=== PATIENT | female | born 1990 | race Caucasian/White ===

== ENCOUNTER → 2019-12-26 07:55 | Outpatient (CLI) | payer BC, SELFPAY ==
--- NOTE | ~2019-12-26 | US_ITS ---
EXAMINATION: US abdomen complete EXAM DATE: 12/26/2019 08:15 INDICATION: Abdominal pain, gas bloating. Right flank pain, right upper quadrant pain. TECHNIQUE: Multiple grayscale and Doppler images of the complete abdomen were obtained (by a technolo gist who performed the scan) and subsequently reviewed. There is no prior study for comparison. FINDINGS: The abdominal aorta is normal in caliber. Visualized portion IVC is patent. The pancreatic head a nd body are normal in appearance. The pancreatic tail is not visualized. The liver has normal echogenicity and contour. There are no focal liver lesions identified. There is no evidence of intrahepatic biliary duct dilation. Portal venous flow was seen in the hepatopedal , normal direction and has normal Doppler waveform. Common bile duct measures 3 mm, which is normal. The gallbladder wall is normal in thickness, with ex pected amount of distention. No sonographic evidence of pericholecystic fluid. There is no cholelit hiases. Technologist performing exam reports patient did not demonstrate sonographic Hannon's sign. Please note that this sign is less reliable in patients who have received pain medication. Right kidney: There is normal contour and echogenicity. It measures 10.8 x 3.5 x 4.7 centimeters. There are no focal renal lesions identified. There is no hydronephrosis. Left kidney: There is normal contour and echogenicity. It measures 10.2 x 5.5 x 6.1 centimeters. T here are no focal renal lesions identified. There is no hydronephrosis. The spleen measures 9.8 centimeters and is morphologically normal. IMPRESSION: 1. Unremarkable complete abdominal ultrasound exam. Reviewed, dictated and finalized at location B.
== END ==
PROVIDERS: PCP Nurse Practitioner; Visit Provider Nurse Practitioner
DX: R10.9 Unspecified abdominal pain (principal)
CPT/HCPCS: 76700

== ENCOUNTER 2020-01-07 08:34 | Outpatient (CLI) | payer BC, SELFPAY ==
--- NOTE | ~2020-01-07 | CT_ITS ---
EXAMINATION: CT abdomen pelvis w con DATE: 01/07/2020 09:11 INDICATION: Unspecified abdominal pain TECHNIQUE: Computed tomography (CT) of the abdomen and pelvis was performed with 100 cc Omnipaque 350 intravenous contrast. The dose-length product was 224.95 mGy-cm. Automated exposure control and iter ative reconstruction technique were employed. COMPARISON: None. FINDINGS: Heart size normal. No significant pleural or pericardial effusion. Lung bases are unremarka ble. No significant vascular abnormality. No lymphadenopathy. There are enlarged periuterine and para metrial veins, consistent with pelvic congestion syndrome. No bowel obstruction. There is hepatomegaly. The spleen, pancreas, adrenal glands and kidneys are unremarkable. Gallbladder is present. No free air or free fluid. No acute osseous abnormality. IMPRESSION: 1. Enlarged periuterine and parametrial veins, consistent with pelvic congestion syndrome. 2: Hepatomegaly. Reviewed, dictated and finalized at location A. IMPRESSION: 1. Enlarged periuterine and parametrial veins, consistent with pelvic congestio n syndrome. 2: Hepatomegaly.
== END 2020-01-07 08:35 | disposition home or self-care (01) ==
LOC: ANHIMG 08:42
PROVIDERS: PCP Internal Medicine; Visit Provider Nurse Practitioner
DX: R10.9 Unspecified abdominal pain (principal); R16.0 Hepatomegaly, not elsewhere classified
CPT/HCPCS: 74177; Q9967

== ENCOUNTER 2022-01-14 15:42 | Emergency (ER) | payer BC, SELFPAY ==
--- NOTE | ~2022-01-14 | XR_ITS ---
EXAMINATION: XR chest 2V DATE: 01/14/2022 15:58 INDICATION: Chest pain. TECHNIQUE: Frontal and lateral views of the chest were obtained. COMPARISON: CT abdomen and pelvis 01/07/2020 FINDINGS: The chest demonstrates clear lungs without pneumonia, pleural effusion, or pneumothorax. Th e heart size is normal. IMPRESSION: 1. No acute cardiopulmonary disease. Reviewed, dictated and finalized at location E.
[2022-01-14 15:46] VITALS: BP 152/70; PULSE 78; RESP 20; O2SAT 100
--- NOTE | 2022-01-14 15:51 | ECG_ITS ---
Measurements Intervals Felt Rate: 77 P: 51 [place]: 143 QRS: 93 QRSD: 105 T: 7 QT: 366 QTc: 414 Interpretive Statements SINUS RHYTHM INCOMPLETE RIGHT BUNDLE BRANCH BLOCK [90+ ms QRS DURATION, TERMINAL R IN V1/V2, 40+ ms S IN I/aVL/V4/V5/V6] BASELINE ARTIFACT BORDERLINE ECG NO PREVIOUS ECG AVAILABLE FOR COMPARISON Electronically Signed On 01-15-2022 16:11:18 CDT by Oscar Carter M.D.
[2022-01-14 16:10] VITALS: PULSE 74
--- NOTE | 2022-01-14 16:17 | ED.CHESTPAIN ---
HPI - Chest Pain General Chief Complaint: Chest Pain Stated Complaint: chest pain Time Seen by Provider: 01/14/22 15:47 Source: patient Mode of arrival: ambulatory Limitations: no limitations History of Present Illness HPI narrative: Patient is 31 years old white female presented to the ED with intermittent chest pain sometimes on the right side sometimes on the left side, dull aching for the last 3 days. Patient denies any fever, chills, nausea, vomiting, diarrhea, constipation, shortness of breath, radiation of pain. Patient had discomfort and pain at the medial side of right thigh for 1-1/2 months, never been seen by any doctor for, is wondering if she have blood clot or not. Related Data Home Medications Medication Instructions Recorded Confirmed No Home Medications 01/14/22 01/14/22 Allergies Allergy/AdvReac Type Severity Reaction Status Date / Time No Known Allergies Allergy Verified 01/14/22 15:50 Review of Systems Review of Systems: CONSTITUTIONAL: Denies fever, chills, or sweats. EYES: Denies visual changes, redness, or discharge. ENT: Denies rhinorrhea, congestion, sore throat, or otalgia. CARDIOVASCULAR: Denies chest pain, palpitations, or edema. RESPIRATORY: Denies cough or dyspnea. GASTROINTESTINAL: Denies abdominal pain, nausea, vomiting, or diarrhea. GENITOURINARY: Denies dysuria or hematuria. SKIN: Denies rash or itching. MUSCULOSKELETAL: Denies back pain, joint pain, or myalgia. NEUROLOGIC: Denies headache, numbness, or weakness. PSYCHIATRIC: Denies anxiety or depression. [facility] Surgical History Surgical History Delivery by section 2019 Social History Social History Smoking status: Never smoker Alcohol intake: current Alcohol use details: A couple of beers a week. Exam Narrative: General appearance: Well-developed, well-nourished Skin: Normal color Head: Normocephalic, nontraumatic Eyes: Clear conjunctiva ENT: Oropharynx normal, ears normal, nose normal Neck: Supple, nontender Chest and respiratory: Airway patent, no respiratory distress, no accessory muscle use Heart: Regular rate/rhythm Abdomen: Soft, nontender, no organomegaly, quiet bowel sounds Vascular: Normal peripheral pulses, normal capillary refill. Musculoskeletal: Right thigh examination showed no erythema, no swelling, no mass, no rash, no tenderness, normal size compared to the left 1 Neurologic: Alert and oriented ?3, UNEMPLOYMENT SPECIALIST is normal as tested, no gross motor deficit Course Course Emergency Course: Patient presentation is not consistent with a patient with pulmonary embolism., And anxiety-like symptoms is my concern. Work-up did not show any significant findings to explain patient condition, D-dimer is slightly elevated which is not consistent with a possibility of deep vein thrombosis or pulmonary embolism. Patient oxygenation on room air IS 100% Vital Signs Vital signs: Vital Signs Pulse Rate 78 01/14/22 15:46 Respiratory Rate 20 01/14/22 15:46 Blood Pressure 152/70 H 01/14/22 15:46 Pulse Oximetry 100 01/14/22 15:46 Pulse Rate 74 01/14/22 16:10 Respiratory Rate 20 01/14/22 15:46 Blood Pressure 152/70 H 01/14/22 15:46 Pulse Oximetry 100 01/14/22 15:46 MDM - Chest Pain MDM Narrative Medical decision making narrative: Chest pain, pulmonary embolism, anxiety-like symptoms Differential Diagnosis Differential diagnosis: Likely stable angina, atypical chest pain, costochondritis, chest pain and other (Anxiety-like symptoms, pulmonary embolism) Lab Data Result diagrams: 01/14/22 16:08
[2022-01-14 16:27] LABS: Basophils Percent Auto 0.6 % (0.2-1.2); Eosinophils Absolute Auto 0.1 K/mm3 (0-0.3); Eosinophils Percent Auto 1.4 % (0-4.4); Hematocrit 35.7 % (37.0-47.0); Hemoglobin 11.6 g/dL (12.0-15.0); Immature Granulocyte Absolute 0.01 K/mm3 (0.00-0.031); Immature Granulocyte Percent A 0.2 % (0-0.5); Lymphocytes Absolute Auto 0.87 K/mm3 (0.9-3.2); Lymphocytes Percent Auto 17.5 % (18.3-44.2); Mean Corpuscular HGB Conc 32.5 g/dl (32-36); Mean Corpuscular Hemoglobin 29.7 pg (26-34); Mean Corpuscular Volume 91.3 fl (80-100); Mean Platelet Volume 10.8 fl (7.4-10.4); Monocytes Absolute Auto 0.6 K/mm3 (0.1-0.6); Monocytes Percent Auto 11.3 % (2.6-8.5); Neutrophils Absolute Auto 3.4 K/mm3 (1.3-6.7); Platelet Count Result 217 k/mm3 (150-375); Red Blood Count 3.91 M/mm3 (4.2-5.4); Red Cell Distribution Width 12.9 % (11.5-14.5)
[2022-01-14] MEDS: ASPIRIN 81 MG CHEWABLE TABLET 324 MG PO (16:31)
[2022-01-14 16:37] LABS: INR 1.1; Prothrombin Time 13.3 Seconds (11.1-14.7)
[2022-01-14 16:41] LABS: Alanine Aminotransferase 17 U/L (4-35); Albumin Level 4.1 g/dL (3.5-5.1); Alkaline Phosphatase 42 U/L (38-126); Anion Gap 7 mmol/L (8-16); Aspartate Amino Transferase 25 U/L (14-36); Bilirubin,Total 0.3 mg/dL (0.2-1.3); Blood Urea Nitrogen 12 mg/dL (7-17); Calcium 8.6 mg/dL (8.4-10.2); Carbon Dioxide 27 mmol/L (22-30); Chloride 103 mmol/L (98-107); Estimated CRCL calculation 84 ml/min; Estimated Glomerular Filt Rate > 60; Glucose 108 mg/dL (65-110); Lipase 40 U/L (23-300); Potassium 3.3 mmol/L (3.4-5.0); Sodium 137 mmol/L (137-145)
[2022-01-14 16:51] LABS: Troponin I < 0.012 ng/mL (0.000-0.034)
[2022-01-14 17:10] VITALS: BP 122/79; PULSE 71; RESP 17; O2SAT 99
== END 2022-01-14 17:13 | disposition home or self-care (01) ==
PROVIDERS: Emergency Provider Emergency Medicine; PCP Internal Medicine
DX: R07.9 Chest pain, unspecified (principal); I45.10 Unspecified right bundle-branch block
CPT/HCPCS: 36415; 71046; 80053; 83690; 84484; 85025; 85380; 85610; 85730; 93005; 99284; A9270

== ENCOUNTER → 2023-09-11 09:48 | Outpatient (CLI) | payer BC, SELFPAY ==
--- NOTE | ~2023-09-11 | US_ITS ---
EXAMINATION: US transvaginal DATE: 09/11/2023 10:12 INDICATION: Left lower quadrant pain. History of kidney stones. Comparison:No prior studies for comparison. TECHNIQUE: Multiple endovaginal sonographic images of the pelvis performed. FINDINGS: The uterus measures 6.9 x 5.9 x 4.6 cm. The endometrial complex is heterogeneous measuring 2 cm.. The right ovary measures 3.5 x 2.4 x 2.6 cm and the left ovary measures 2.6 x 1.4 x 2.5 cm. There ar e small follicles in each ovary. Normal doppler signal in both ovaries. There is no free fluid in the pelvis. There are no abnormal masses seen on either side. IMPRESSION: 1. Thickened heterogeneous endometrium measuring 2 cm. Reviewed, dictated and finalized at location L. RPROOFER HELPER
== END ==
PROVIDERS: PCP Obstetrics & Gynecology; Visit Provider Nurse Practitioner
DX: R10.31 Right lower quadrant pain (principal); Z87.442 Personal history of urinary calculi
CPT/HCPCS: 76830

== ENCOUNTER 2023-11-07 01:41 | Day surgery (SDC) | payer BC, SELFPAY ==
[2023-10-10 09:49] VITALS: BMI 19.5
--- NOTE | 2023-10-10 10:12 | PC.NURSE ---
Addendum entered by Lela Davenport RN 10/29/23 12:39: PT TO ARRIVE AT 1000 ON 11/07/23 FOR SURGERY AT 1200. Original Note: Report to the Outpatient Waiting Room, entrance under the green pavilion located off [facility], at 1130 on 10-24-23. Planned Procedure Time: 1330. Time changes happen often and if your time is changed the preop area will call you the afternoon before. - You and your visitor will be asked to self-screen and do not enter if you have any COVID symptoms. - A mask is optional within the hospital at this time. Patients may have clear liquids (water, carbonated beverages, clear teas, apple juice) until 3 hours prior to surgery with a maximum of 20 ounces. 1030 - No food from midnight until time of surgery - Infants may have breast milk until 4 hours before surgery, infant formula 6 hours prior to surgery. - Children will be allowed to drink immediately following surgery. If applicable, please bring a bottle or sippy cup to assist with drinking. Juice, water, soda, and popsicles are readily available. For infants on formula, please bring formula the day of surgery. Pacifiers are allowed. Take the following medications with a SIP of water the morning of surgery: None DO NOT STOP ANY OF YOUR OTHER PRESCRIPTION MEDICATIONS PRIOR TO SURGERY ?EXCEPT THE FOLLOWING Medications to discontinue per physician: N/A Please no make-up, nail turkish, hairspray, perfume, deodorant, or body powder the day of surgery. No jewelry (including any body piercings) or valuables the day of surgery, leave them at home. Please take a shower or bath the night before, or the morning of, surgery with an antibacterial soap. Wear comfortable, loose fitting clothing. Children are encouraged to wear pajamas. - Jewelry must be removed prior to entering the operating room. Rings and piercings that are not removed may be cut off. - The hospital will not accept responsibility for valuables. - Please leave all valuables, including medications, at home the day of surgery. If you are going home after surgery, a licensed tractor trailer moving van driver must drive you home. - NO public transportation without another adult if you receive anesthesia. - We recommend that an adult stay with you for 24 hours following discharge. - We also recommend that you do not drive, make important decision, drink alcoholic beverages, or take any drugs that were not prescribed by your health care provider for at least 24 hours after your discharge time. For Pediatric surgeries, we recommend two adults accompany the child home. Follow any additional instructions given to you from your surgeon. If you or anyone in your household have experienced Covid symptoms in the past week, please notify your surgeon or the nurse liaison at the phone number below for possible testing. Telephone instructions given to Divina Cedeno and asked if any additional questions and then verbalized understanding. Patient advised to call surgeon office or pre surgery nurse liaison [phone] if any additional questions.
--- NOTE | 2023-10-29 12:38 | PC.NURSE ---
Pt history update in EMR - no other changes in medications or health history since initial interview. New pre-op instructions reviewed with pt. Pt denies questions at this time.
--- NOTE | 2023-11-06 09:41 | P.PNAN_ITS ---
Anes - Initial Pre Proc Eval Procedure: Operation Date: 11/07/23 12:00 Proposed Procedures p Hysteroscopy, Dilation and Curettage, Polypectomy - Stone Thompson MD Date/Time: 11/06/23 09:41 Surgeon: Stone Thompson MD Pre Op Diagnosis: Uterine Polyp, Pelvic Pain, Thickened Endometrium Patient Data Age: 33 Gender: F Height: 1.7 m Weight: 56.7 kg Allergies Allergy/AdvReac Type Severity Reaction Status Date / Time No Known Allergies Allergy Verified 11/07/23 10:55 Home Medications Medication Instructions Recorded Confirmed Type No Home Medications 01/14/22 10/29/23 History Patient hx anesthesia problems: none Family hx anesthesia problems: none Results Review: All pre-operative results and documents have been reviewed as part of the pre- operative evaluation. [facility] Surgical History Surgical History Delivery by section 2018 Social History Social History (Updated 11/07/23 @ 11:29 by Corky Gutierrez DO) Smoking status: Never smoker Second hand tobacco smoke exposure: No Alcohol intake: current Drinks per week: 2 Alcohol use details: A couple of beers a week. Substance use: current Substance use type: marijuana Other substance usage details: occasional Living arrangements: with family Spiritual care concerns: No Anes - Eval Final PreProcedure Day of Procedure 11/06/23 09:41 Patient weight: normal Heart: regular rate and rhythm Lungs: clear to auscultation and normal air movement Airway: Mallampati scale class II Neurological: alert and oriented Last oral intake: >/= 8 hours ASA classification: II Emergent: no Anesthetic plan: proceed Anesthesia type and monitoring: general GIVS and standard monitoring Results Review: All pre-operative results and documents have been reviewed as part of the pre- operative evaluation. Informed Consent: The patient's anesthetic plan and its attendant risks and benefits were discussed with the patient/family/POA. Questions were solicited and answers provided to the satisfaction of the patient/family/POA.
[2023-11-07 10:45] VITALS: BP 125/81; PULSE 73; RESP 14; TEMP 36.9; O2SAT 100
[2023-11-07] MEDS: ACETAMINOPHEN 500 MG TABLET 1000 MG PO (10:45)
[2023-11-07] MEDS: LACTATED RINGERS 1,000 ML 30 ML IV CONT (10:45)
--- NOTE | 2023-11-07 11:41 | PM.IMHP ---
H&P: HPI History of Present Illness Date/Time: 11/07/23 11:41 Chief Complaint: Heavy periods Narrative: 33 y/o who has heavy menses lasting 7 days each, occurring on a monthly basis. Ultrasound exam shows thickened, heterogeneous endometrium measuring 2 cm. Her has had a vasectomy. Review of Systems Review of Systems: All systems reviewed & are unremarkable except as noted in HPI and below PMFSH Surgical History Surgical History Delivery by section 2018 Social History Social History Smoking status: Never smoker Second hand tobacco smoke exposure: No Alcohol intake: current Drinks per week: 2 Alcohol use details: A couple of beers a week. Substance use: current Substance use type: marijuana Other substance usage details: occasional Living arrangements: with family Spiritual care concerns: No Meds Home Medications and Allergies Home Medications Medication Instructions Recorded Confirmed Type No Home Medications 01/14/22 10/29/23 History Allergies Allergy/AdvReac Type Severity Reaction Status Date / Time No Known Allergies Allergy Verified 11/07/23 10:55 Vital Signs Vital Signs - 24 hr 11/07/23 10:45 Temperature 36.9 C Pulse Rate 73 Respiratory Rate 14 Blood Pressure 125/81 Pulse Oximetry 100 Oxygen Delivery Room Air Exam Const: Orientation/consciousness: patient oriented x3 Other: Well-developed, well-nourished female in no acute distress. Neck: Thyroid: thyroid normal Lymphatic: no lymphadenopathy noted (in neck, axilla or inguinal nodes) Resp: Effort & Inspection: normal respiratory effort Auscultation: clear to auscultation bilaterally Cardio: Rate: regular rate Rhythm: regular rhythm Heart sounds: S1 normal heart sound present and S2 normal heart sound present GI: Other: ABD: Soft, nontender, nondistended. No guarding or rebound tenderness. No hepatosplenomegaly. : General: Yes no CVA tenderness Other: External genitalia: normal female hair distribution, without lesion. Urethral meatus: no lesion, non prolapsed. Bladder: no mass, nontender Vagina: well-estrogenized, without lesion or discharge. No cystocele or rectocele. Cervix: no lesion or discharge. Uterus: small, anteverted, freely mobile, nontender Adnexa: no mass or tenderness. Anus/perineum: no lesions, nontender Back/Spine/Pelvis: Back: no CVA tenderness Skin: General skin exam: normal color and no rashes or lesions noted Neuro: General: patient oriented x3 Extrem: Other: Extremities: nontender with no edema Psych: Mental Status: mental status grossly normal Affect: normal affect Assessment and Plan Assessment and plan (1) Menorrhagia: Code(s): N92.0 - Excessive and frequent menstruation with regular cycle Status: Acute Assessment and Plan: A: Menorrhagia with abnormal pelvic ultrasound. P: Offered medical as well as surgical approaches, and she prefers the latter. Specifically, I have offered hysteroscopy with dilation and sharp curettage, with possible endometrial polypectomy. She understands risks of surgery to include risks of anesthesia, risks of pain, infection, bleeding, blood products, thromboembolic phenomena and damage to adjacent structures such as bowel, bladder, ureters, blood vessels and nerves. She understands all these risks and elects to proceed with surgery. (2) Abnormal pelvic ultrasound: Code(s): R93.89 - Abnormal findings on diagnostic imaging of other specified body structures Status: Acute
--- NOTE | 2023-11-07 12:04 | WPDHPUPDATE1 ---
History and Physical Update Update Date/Time: 11/07/23 12:04 History and Physical has been reviewed, including an updated exam of the patient. There are NO changes in the patient's condition. Risks, benefits, and alternatives have been discussed and questions answered. Patient agrees to proceed with procedure.
[2023-11-07] MEDS: LIDOCAINE HCL 1% LOCAL INJ 20 ML VIAL 10 ML INFILTRATE (12:27)
[2023-11-07 12:40] VITALS: BP 120/76; PULSE 65; RESP 12; O2SAT 100
--- NOTE | 2023-11-07 12:40 | W.PM.PROC2 ---
Procedure Note - Detailed Date of Procedure 11/07/23 Pre-op Diagnosis Menorrhagia Abnormal pelvic ultrasound Post-op Diagnosis Same Procedure Performed Hysteroscopy Dilation and sharp curettage Surgeon Stone Thompson MD Anesthesia MAC and Local (1% lidocaine) Findings Endometrial tissue thick, but otherwise unremarkable. Both tubal ostia seen. Description of Procedure The patient was taken to the operating room where she was prepared and draped in the usual sterile fashion in the dorsal lithotomy position. The bladder was drained with a red rubber catheter. A sterile speculum was placed into the vagina. The anterior lip of the cervix was grasped with single-tooth tenaculum. Ten mL of 1% lidocaine was administered in a paracervical block. The cervix was then gently dilated using Hegar dilators until a 7 mm dilator could be passed. Hysteroscopy was performed using sterile saline as a distention medium. Findings are as noted above. Sharp curettage was then performed, and endometrial curettings were collected on a Telfa pad and passed off to be sent to pathology. Hemostasis was excellent. Sponge, lap, needle and instrument counts were correct. The patient was awakened and taken to the recovery room in stable condition. I was present and scrubbed through the entire procedure. Estimated Blood Loss 5 Drains No Packing No Pathology Yes (Endometrial curettings) Complications None Condition Stable Disposition PACU
[2023-11-07 13:10] VITALS: BP 119/83; PULSE 53; RESP 16
== END 2023-11-07 13:20 | disposition home or self-care (01) ==
PROVIDERS: PCP Internal Medicine; Visit Provider Obstetrics & Gynecology
PROC: 0U5B8ZZ Destruction of Endometrium, Via Natural or Artificial Opening Endoscopic (ICD-10-PCS; CPT 58563; principal; 2023-11-07 12:00)
DX: N92.0 Excessive and frequent menstruation with regular cycle (principal)
CPT/HCPCS: 58558; 88305; A9270; J1100; J2250; J2405; J2704; J3010; J7120

== ENCOUNTER 2024-11-28 09:22 | Outpatient (CLI) | payer BC, SELFPAY ==
--- OUTSIDE RECORDS SUMMARY | 2024-11-28 09:27 | XMS_ITS | Clinical Summary ---
Author Organization [facility] Address [address] [place] [address] Care Team Providers Care Environmental Solutions Engineer Name Role Phone Thiago Sigala DO Primary Care Provider [phone]- [phone] Allergies No known active allergies Medications acetaminophen (TYLENOL) 500 mg tablet Take 1 tablet (500 mg total) by mouth every 6 (six) hours as needed for pain 30 tablet 08/25/2023 Active Social History Tobacco Use Types Packs/Day Years Used Date Smoking Tobacco: Never Assessed Personal Safety Answer Date Recorded Have you ever been in or are you currently in a harmful physical or emotional relationship or is someone making you feel afraid or unsafe? Denies 08/25/2023 Comments Unknown Sex and Gender Information Value Date Recorded Sex Assigned at Not on file Legal Sex Female 10:20 AM RESEARCH ASST Gender Identity Not on file Sexual Orientation Not on file Last Filed Vital Signs Vital Sign Reading Time Taken Comments Blood Pressure 122/69 08/25/2023 2:35 PM RESEARCH ASST Pulse 59 08/25/2023 2:35 PM RESEARCH ASST Temperature 37.1 C (98.8 F) 08/25/2023 10:42 AM RESEARCH ASST Respiratory Rate 16 08/25/2023 2:35 PM RESEARCH ASST Oxygen Saturation 96% 08/25/2023 2:35 PM RESEARCH ASST Inhaled Oxygen Concentration - - Weight 56.7 kg (125 lb) 08/25/2023 10:42 AM RESEARCH ASST Height 170.2 cm (5' 7 ) 08/25/2023 10:42 AM RESEARCH ASST Body Mass Index 19.58 08/25/2023 10:42 AM RESEARCH ASST Plan of Treatment Health Maintenance Due Date Last Done Comments Cervical Cancer Screening 1991 Depression Screening 1991 Hepatitis C Screening 1991 DTaP/Tdap/Td Vaccine (1 - Tdap) 2002 Varicella Vaccines (1 of 2 - 13+ 2-dose series) 2004 Hepatitis B Screening 2009 Regular Well Visit/Exam 18-64 2009 Influenza Vaccine (#1) 2024 HPV Vaccines Aged Out No longer eligi ble based on patient's age to complete this topic Pneumococcal vaccine <65 Aged Out No longer eligible based on patient's age to complete this topic Insurance [facility] Care Teams Environmental Solutions Engineer Relationship Specialty Start Date End Date Thiago Sigala DO PCP - General Internal Medicine 08/25/23
--- OUTSIDE RECORDS SUMMARY | 2024-11-28 09:27 | XMS_ITS | Referral Summary ---
Author Organization [facility] Address [address] [place] [address] Care Team Providers Care Customer Supply Chain Analyst Name Role Phone Thiago Sigala DO Primary Care Provider [phone]- [phone] Allergies No known active allergies Medications acetaminophen [...] on file Legal Sex Female 10:20 AM DAIRY NUTRITION CONSULTANT Gender Identity Not on file Sexual Orientation Not on file Last Filed Vital Signs Vital Sign Reading Time Taken Comments Blood Pressure 122/69 08/25/2023 2:35 PM DAIRY NUTRITION CONSULTANT Pulse 59 08/25/2023 2:35 PM DAIRY NUTRITION CONSULTANT Temperature 37.1 C (98.8 F) 08/25/2023 10:42 AM DAIRY NUTRITION CONSULTANT Respiratory Rate 16 08/25/2023 2:35 PM DAIRY NUTRITION CONSULTANT Oxygen Saturation 96% 08/25/2023 2:35 PM DAIRY NUTRITION CONSULTANT Inhaled Oxygen Concentration - - Weight 56.7 kg (125 lb) 08/25/2023 10:42 AM DAIRY NUTRITION CONSULTANT Height 170.2 cm (5' 7 ) 08/25/2023 10:42 AM DAIRY NUTRITION CONSULTANT Body Mass Index 19.58 08/25/2023 10:42 AM DAIRY NUTRITION CONSULTANT Plan of Treatment Not on file Insurance [facility] Care Teams Customer Supply Chain Analyst Relationship Specialty Start Date End Date Thiago Sigala DO PCP - General Internal Medicine 08/25/23
[2024-11-28 17:46] LABS: Alanine Aminotransferase 26 U/L (6-35); Albumin Level 4.8 g/dL (3.5-5.1); Alkaline Phosphatase 54 U/L (38-126); Anion Gap 12 mmol/L (4-12); Aspartate Amino Transferase 50 U/L (14-36); Bilirubin,Total 0.7 mg/dL (0.2-1.3); Blood Urea Nitrogen 14 mg/dL (7-17); Calcium 9.6 mg/dL (8.4-10.2); Carbon Dioxide 27 mmol/L (22-30); Chloride 102 mmol/L (98-107); Cholesterol 178 mg/dL (0-200); Estimated Glomerular Filt Rate > 60; Glucose 87 mg/dL (65-110); HDL Direct 80 mg/dL; Potassium 4.3 mmol/L (3.4-5.0); Sodium 141 mmol/L (137-145); Triglycerides 53 mg/dL (<150)
[2024-11-28 17:48] LABS: Basophils Absolute Auto 0.1 K/mm3 (0.0-0.1); Basophils Percent Auto 0.9 % (0.2-1.2); Eosinophils Absolute Auto 0.1 K/mm3 (0-0.3); Eosinophils Percent Auto 0.6 % (0-4.4); Hematocrit 42.3 % (37.0-47.0); Hemoglobin 13.3 g/dL (12.0-15.0); Immature Granulocyte Absolute 0.02 K/mm3 (0.00-0.031); Immature Granulocyte Percent A 0.2 % (0-0.5); Lymphocytes Percent Auto 16.1 % (18.3-44.2); Mean Corpuscular HGB Conc 31.4 g/dl (32-36); Mean Corpuscular Volume 92.4 fl (80-100); Mean Platelet Volume 11.1 fl (7.4-10.4); Monocytes Absolute Auto 0.6 K/mm3 (0.1-0.6); Monocytes Percent Auto 7.7 % (2.6-8.5); Neutrophils Percent Auto 74.5 % (45.5-73.1); Platelet Count Result 282 k/mm3 (150-375); Red Blood Count 4.58 M/mm3 (4.2-5.4); White Blood Count 8.1 K/mm3 (4.5-10.0)
[2024-11-28 17:57] LABS: LDL Cholesterol Direct 74 mg/dL
== END 2024-11-28 09:23 | disposition home or self-care (01) ==
LOC: ANHGOSHLAB 09:24
PROVIDERS: PCP Nurse Practitioner; Visit Provider Nurse Practitioner
DX: R07.9 Chest pain, unspecified (principal)
CPT/HCPCS: 36415; 80053; 80061; 84443; 85025

== ENCOUNTER 2024-12-02 14:39 | Outpatient (CLI) | payer BC, SELFPAY ==
--- NOTE | ~2024-12-02 | XR_ITS ---
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 RESULT: Lines, tubes, and devices: None. Lungs and pleura: Clear. Cardiomediastinal silhouette: Stable. Other: No acute osseous or upper abdominal finding. IMPRESSION: No acute cardiopulmonary process. Reviewed, dictated and finalized at location K. AGING MACHINE SUPPLIES DISTRIBUTOR
== END 2024-12-02 14:40 | disposition home or self-care (01) ==
PROVIDERS: PCP Clinical Nurse Specialist; Visit Provider Clinical Nurse Specialist
DX: R07.9 Chest pain, unspecified (principal)
CPT/HCPCS: 71046

== ENCOUNTER 2024-12-02 14:50 | Outpatient (CLI) | payer BC, SELFPAY ==
--- OUTSIDE RECORDS SUMMARY | 2024-12-02 14:53 | XMS_ITS | Referral Summary ---
Author Organization [facility] Address [address] [place] [address] Care Team Providers Care Cutter First Name Role Phone Tihago Sigala DO Primary Care Provider [phone]- [phone] Allergies No known active allergies Medications acetaminophen [...] on file Legal Sex Female 10:20 AM ANVIL WORKER Gender Identity Not on file Sexual Orientation Not on file Last Filed Vital Signs Vital Sign Reading Time Taken Comments Blood Pressure 122/69 08/25/2023 2:35 PM ANVIL WORKER Pulse 59 08/25/2023 2:35 PM ANVIL WORKER Temperature 37.1 C (98.8 F) 08/25/2023 10:42 AM ANVIL WORKER Respiratory Rate 16 08/25/2023 2:35 PM ANVIL WORKER Oxygen Saturation 96% 08/25/2023 2:35 PM ANVIL WORKER Inhaled Oxygen Concentration - - Weight 56.7 kg (125 lb) 08/25/2023 10:42 AM ANVIL WORKER Height 170.2 cm (5' 7 ) 08/25/2023 10:42 AM ANVIL WORKER Body Mass Index 19.58 08/25/2023 10:42 AM ANVIL WORKER Plan of Treatment Not on file Insurance [facility] Care Teams Cutter First Relationship Specialty Start Date End Date Thiago Sigala DO PCP - General Internal Medicine 08/25/23
--- OUTSIDE RECORDS SUMMARY | 2024-12-02 14:53 | XMS_ITS | Clinical Summary ---
Author Organization [facility] Address [address] [place] [address] Care Team Providers Care Communications Billing Analyst Name Role Phone Thiago Sigala DO Primary Care Provider [phone] Allergies No known active allergies Medications acetaminophen [...] on file Legal Sex Female 10:20 AM VACATION GUIDE Gender Identity Not on file Sexual Orientation Not on file Last Filed Vital Signs Vital Sign Reading Time Taken Comments Blood Pressure 122/69 08/25/2023 2:35 PM VACATION GUIDE Pulse 59 08/25/2023 2:35 PM VACATION GUIDE Temperature 37.1 C (98.8 F) 08/25/2023 10:42 AM VACATION GUIDE Respiratory Rate 16 08/25/2023 2:35 PM VACATION GUIDE Oxygen Saturation 96% 08/25/2023 2:35 PM VACATION GUIDE Inhaled Oxygen Concentration - - Weight 56.7 kg (125 lb) 08/25/2023 10:42 AM VACATION GUIDE Height 170.2 cm (5' 7 ) 08/25/2023 10:42 AM VACATION GUIDE Body Mass Index 19.58 08/25/2023 10:42 AM VACATION GUIDE Plan of Treatment Health Maintenance Due Date [...] to complete this topic Insurance [facility] Care Teams Communications Billing Analyst Relationship Specialty Start Date End Date Thiago Sigala DO PCP - General Internal Medicine 08/25/23
[2024-12-02 17:00] LABS: Alanine Aminotransferase 21 U/L (6-35); Albumin Level 4.4 g/dL (3.5-5.1); Alkaline Phosphatase 50 U/L (38-126); Anion Gap 8 mmol/L (4-12); Aspartate Amino Transferase 33 U/L (14-36); Bilirubin,Total 0.3 mg/dL (0.2-1.3); Blood Urea Nitrogen 15 mg/dL (7-17); Calcium 9.3 mg/dL (8.4-10.2); Carbon Dioxide 29 mmol/L (22-30); Chloride 105 mmol/L (98-107); Estimated Glomerular Filt Rate > 60; Glucose 75 mg/dL (65-110); Potassium 3.8 mmol/L (3.4-5.0); Sodium 142 mmol/L (137-145)
== END 2024-12-02 14:51 | disposition home or self-care (01) ==
LOC: ANHGOSHLAB 14:51
PROVIDERS: PCP Clinical Nurse Specialist; Visit Provider Clinical Nurse Specialist
DX: R74.01 Elevation of levels of liver transaminase levels (principal)
CPT/HCPCS: 36415; 80053

== ENCOUNTER 2025-02-18 14:35 | Outpatient (CLI) | payer BC, SELFPAY ==
--- NOTE | ~2025-02-18 | US_ITS ---
EXAMINATION: US thyroid DATE: 02/18/2025 14:45 INDICATION: Left neck pressure TECHNIQUE: Multiple ultrasound images of the thyroid were obtained. COMPARISON: None. FINDINGS: The right thyroid lobe measures 4.8 x 1.8 x 1.5 cm. The left thyroid lobe measures 3.4 x 1.4 x 1.5 cm. The isthmus measures 0.3cm in anterior to posterior dimension. There is normal echotexture and echogenicity throughout the thyroid gland. No discrete nodules identified. Trace increased vascular flow is present. IMPRESSION: Increased vascular flow within the thyroid gland. Otherwise, unremarkable sonographic evaluation of the thyroid gland, as detailed above. Reviewed, dictated and finalized at location A. IMPRESSION: Increased vascular flow within the thyroid gland. Otherwise, unremarkable sonographic evaluation of the thyroid gland, as detaile d above.
== END 2025-02-18 14:36 | disposition home or self-care (01) ==
LOC: GOSHIMG 14:35
PROVIDERS: PCP Nurse Practitioner; Visit Provider Nurse Practitioner
DX: E04.9 Nontoxic goiter, unspecified (principal)
CPT/HCPCS: 76536